=== PATIENT | male | born 1960 | race Caucasian/White ===

== ENCOUNTER 2023-09-04 14:22 | Emergency (ER) | payer MEDICARE, SELFPAY ==
[2023-09-04 14:26] VITALS: BP 131/85; PULSE 137; RESP 18; TEMP 36.8; O2SAT 95; BMI 21.5
--- NOTE | 2023-09-04 14:47 | CTR_ITS ---
PROCEDURE INFORMATION: Exam: CT Abdomen And Pelvis With Contrast Exam date and time: 09/04/2023 4:15 PM Age: 62 years old Clinical indication: Abdominal pain; Generalized; Additional info: Abdominal pain, cachexia TECHNIQUE: Imaging protocol: Computed tomography of the abdomen and pelvis with contrast. Radiation optimization: All CT scans at this facility use at least one of these dose optimization techniques: automated exposure control; mA and/or kV adjustment per patient size (includes targeted exams where dose is matched to clinical indication); or iterative reconstruction. Contrast material: OMNI 350; Contrast volume: 100 ml; Contrast route: INTRAVENOUS (IV); REPORTING DATA: Count of CT and Cardiac NM exams in prior 12 months: This patient has received 0 known CTs and 0 known cardiac nuclear medicine studies in the 12 months prior to the current study. COMPARISON: No relevant prior studies available. RADIATION DOSE METRICS: Total DLP (mGy-cm): 530 FINDINGS: Lungs: Infiltrate presumably atelectasis in the right base and left base laterally. Pleural spaces: Bilateral small pleural effusions. Liver: Enlarged liver with diffuse metastatic disease. The largest lesion is over 10 x 10 cm. Gallbladder and bile ducts: Normal. No calcified stones. No ductal dilation. Pancreas: Normal. No ductal dilation. Spleen: Normal. No splenomegaly. Adrenal glands: Normal. No mass. Kidneys and ureters: Normal. No hydronephrosis. Stomach and bowel: Thick-walled sigmoid colon extending to the proximal rectum possibly a neoplastic process. Fluid collection in the pelvis just anterior to the sigmoid colon and superior to the urinary bladder having air consistent with an abscess measuring 80 x 67 mm having an inverted U type shape. Appendix: The appendix is seen in unremarkable in the right lower quadrant. Intraperitoneal space: Intra-abdominal free air. Moderate to large ascites. Vasculature: Unremarkable. No abdominal aortic aneurysm. Lymph nodes: Unremarkable. No enlarged lymph nodes. Urinary bladder: See Stomach and bowel finding. Reproductive: Unremarkable as visualized. Bones/joints: Arthritis and spinal listhesis. Soft tissues: Left inguinal hernia containing nonobstructed date distal descending/sigmoid colon. CT/CT abdomen pelvis w con* [id number] IMPRESSION: 1. Diffuse hepatic metastatic disease. 2. Suspect a sigmoid colon/rectal mass. 3. Pelvic fluid collection with air likely an abscess. 4. Free intraperitoneal air. 5. Left inguinal hernia containing nonobstructed colon.
[2023-09-04 15:05] LABS: Hematocrit 30.6 % (37-53); Mean Corpuscular HGB Conc 31.7 g/dL (30-55); Mean Corpuscular Hemoglobin 27.1 pg (27-33); Mean Corpuscular Volume 85.5 fl (82-101); Mean Platelet Volume 8.3 fL (7.4-10.4); Platelet Count 612 10^3/cmm (157-399); Red Blood Count 3.58 10^6/uL (3.85-5.65); White Blood Count 8.71 10^3/uL (3.29-11.43)
[2023-09-04 15:17] VITALS: RESP 18; O2SAT 96
[2023-09-04] MEDS: ondansetron 2 mg/ML SDV 2 mL 4 MG IVP (15:17)
[2023-09-04] MEDS: HYDROmorphone 1 mg/mL INJ 1 mL 0.5 MG IVP (15:17)
[2023-09-04] MEDS: sodium chloride 0.9% 1,000 ML 999 ML IV ×2 (15:17→16:56)
[2023-09-04 15:24] LABS: Alanine Aminotransferase 55 U/L (0-41); Albumin Level 3.2 g/dL (3.5-5.2); Alkaline Phosphatase 246 U/L (40-130); Anion Gap 21.4 (5-19); Aspartate Amino Transferase 78 U/L (0-40); Blood Urea Nitrogen 12 mg/dL (8-23); Calcium 8.9 mg/dL (8.5-10.5); Carbon Dioxide 22 mmol/L (22-29); Chloride 96 mmol/L (98-107); Globulin 2.9 g/dL (1.3-4.6); Glucose 133 mg/dL (65-115); Lipase 6 U/L (13-60); Osmolality Calculated 282 mOsm/kg (285-295); Potassium 4.4 mmol/L (3.5-5.1); Sodium 135 mmol/L (136-145); Total Bilirubin 0.9 mg/dL (0.15-1.2); Total Protein 6.1 g/dL (6.6-8.7)
--- NOTE | 2023-09-04 15:29 | W.ED.WEAKNES ---
HPI - Weakness General: Chief complaint: Weakness Stated complaint: not eating, n/v, not sleeping Time Seen by Provider: 09/04/23 14:25 History of Present Illness: This patient is a 62-year-old white male who presents to the emergency department stating that he has had nausea, vomiting and diarrhea associated with weight loss, abdominal pain and decreased appetite for about 1 year now. He has been getting progressively weaker. He is here with his . He has had some blood in his stool. His past medical history includes ataxia. No surgical history. Review of Systems General: Reports: 10 or more systems reviewed and unremarkable except in HPI and below Physical Exam Const: COMMON NORMALS: patient oriented x3 and no limitations GENERAL APPEARANCE: cooperative and comfortable NUTRITIONAL APPEARANCE: cachectic HENMT: COMMON NORMALS: normocephalic, atraumatic, Normal nasal mucous membranes and turbinates present, moist oral mucous membranes and oropharynx normal HEAD & SCALP: normal to inspection, normocephalic and atraumatic FACE & SINUS: normal facial exam NOSE: Normal nasal mucous membranes and turbinates present Eye: COMMON NORMALS: Equal, round and reactive pupils present, EOMs intact bilaterally and conjunctivae normal GENERAL EYE: appearance normal, both eyes and all related structures CONJUNCTIVA: Yes conjunctivae normal PUPIL: Yes Equal, round and reactive pupils present Neck/C-Spine: COMMON NORMALS: supple and no JVD Chest: COMMONS NORMALS: normal inspection of the chest Resp: COMMON NORMALS: normal respiratory effort and clear to auscultation bilaterally AUSCULTATION: clear to auscultation bilaterally Cardio: COMMON NORMALS: no JVD, regular rate, regular rhythm, No gallops present (Cardio), No murmurs present (Cardio) and No rub (Cardio) RATE: regular rate RHYTHM: regular rhythm GI: INSPECTION: Yes abdominal distension and Yes Fluid wave present AUSCULTATION: Yes Hypoactive bowel sounds present PALPATION: Yes Tenderness to palpation present (GI), Yes Ascites present and Yes Rebound tenderness present PERCUSSION: Fluid wave present : COMMON NORMALS: Yes no CVA tenderness BLADDER/KIDNEY EXAM: Yes no CVA tenderness Back/Pelvis: COMMON NORMALS: no CVA tenderness and thoracic and lumbar spine normal to inspection Extremity: COMMON NORMALS: normal to inspection Neuro: COMMON NORMALS: patient oriented x3 and CN's II-XII intact bilaterally Psych: COMMON NORMALS: mental status grossly normal, Normal thought process present and cooperative THOUGHT PROCESS: Normal thought process present Skin: COMMON NORMALS: no rashes or lesions noted, turgor normal and no jaundice GENERAL SKIN EXAM: no rashes or lesions noted and turgor normal Course Vital Signs: Vital signs: Vital Signs Temperature 98.3 F 09/04/23 14:26 Pulse Rate 113 H 09/04/23 16:30 Respiratory Rate 20 H 09/04/23 16:57 Blood Pressure 130/82 09/04/23 16:30 Pulse Oximetry 98 09/04/23 16:57 Oxygen Delivery Me thod Room Air 09/04/23 16:30 MDM - Weakness Medical Decision Making CBC reveals a hemoglobin of 9.7 and platelet count of 612. CMP revealed an AST of 78, ALT 55 and alk phos of 246. CT scan of the abdomen and pelvis was read by the radiologist. There is free air, ascites, tumor in the sigmoid colon, pelvic abscess and numerous liver masses consistent with metastasis. Patient was given IV fluids and Dilaudid for his pain. I discussed all the results with him. His situation is grave. He is likely not a surgery candidate and he does not want any cancer treatment. Patient request that he just have his pain treated and he would like to go home. I did give him plenty of time to discuss this with his and they are in agreement. We did contact hospice and they are able to see him tomorrow at his home. I did place an order for hospice care. I did prescribe MS Contin for his pain. Patient was discharged. Lab Data 09/04/23 14:50 09/04/23 14:50 Radiology Impressions Abdomen/Pelvis CT 09/04/23 14:47 IMPRESSION: 1. Diffuse hepatic metastatic disease. 2. Suspect a sigmoid colon/rectal mass. 3. Pelvic fluid collection with air likely an abscess. 4. Free intraperitoneal air. 5. Left inguinal hernia containing nonobstructed colon. ADDENDUM: 09/04/23 [id number] THIS REPORT CONTAINS FINDINGS THAT MAY BE CRITICAL TO PATIENT CARE. The findings were verbally communicated by me to ALINA CINTRON at 4:49 PM [employer] on 09/04/2023. The findings were acknowledged and understood. Laboratory Results WBC 8.71 10^3/uL (3.29-11.43) 09/04/23 14:50 RBC 3.58 10^6/uL (3.85-5.65) L 09/04/23 14:50 Hgb 9.70 g/dL (11.27-16.99) L 09/04/23 14:50 Hct 30.6 % (37-53) L 09/04/23 14:50 MCV 85.5 fl (82-101) 09/04/23 14:50 MCH 27.1 pg (27-33) 09/04/23 14:50 MCHC 31.7 g/dL (30-55) 09/04/23 14:50 RDW 15.0 % (12.1-15.1) 09/04/23 14:50 Plt Count 612 10^3/cmm (157-399) H 09/04/23 14:50 MPV 8.3 fL (7.4-10.4) 09/04/23 14:50 Lymph % (Auto) Not Reportable 09/04/23 14:50 [place] % (Auto) Not Reportable 09/04/23 14:50 Lymph # (Auto) Not Reportable 09/04/23 14:50 [place] # (Auto) Not Reportable 09/04/23 14:50 Total Counted 100 (0-100) 09/04/23 14:50 Atypical Lymphs % 4.0 % (0-5) 09/04/23 14:50 Absolute Neutrophils 5.3 10^3/cmm (1.4-6.5) 09/04/23 14:50 Segmented Neutrophils 40 % 09/04/23 14:50 Abs Segm Neuts (Man) 3.5 10/cmm (1.6-7.1) 09/04/23 14:50 Band Neutrophils 21.0 % 09/04/23 14:50 Abs Band Neuts (Man) 1.8 10^3/cmm (0.0-1.2) H 09/04/23 14:50 Absolute Lymphocytes 0.8 10^3/cmm (1.2-3.4) L 09/04/23 14:50 Lymphocytes (Manual) 5 % 09/04/23 14:50 Monocytes (Manual) 3.0 % 09/04/23 14:50 Absolute Monocytes 0.3 10^3/cmm (0.1-0.6) 09/04/23 14:50 Eosinophils (Manual) 0 % 09/04/23 14:50 Absolute Eosinophils 0.0 10^3/cmm (0.0-0.7) 09/04/23 14:50 Basophils (Manual) 0.0 % 09/04/23 14:50 Absolute Basophils 0.0 10^3/cmm (0.0-0.2) 09/04/23 14:50 Metamyelocytes 24.0 % 09/04/23 14:50 Myelocytes 3.0 % 09/04/23 14:50 Platelet Estimate Increased (Normal) 09/04/23 14:50 Poikilocytosis 1+ H 09/04/23 14:50 Anisocytosis 1+ H 09/04/23 14:50 Sodium 135 mmol/L (136-145) L 09/04/23 14:50 Potassium 4.4 mmol/L (3.5-5.1) 09/04/23 14:50 Chloride 96 mmol/L (98-107) L 09/04/23 14:50 Carbon Dioxide 22 mmol/L (22-29) 09/04/23 14:50 Anion Gap 21.4 (5-19) H 09/04/23 14:50 BUN 12 mg/dL (8-23) 09/04/23 14:50 Creatinine 0.7 mg/dL (0.7-1.2) 09/04/23 14:50 GFR Calculation 115.0 mL/min (90-130) 09/04/23 14:50 Glucose 133 mg/dL (65-115) H 09/04/23 14:50 Calculated Osmolality 282 mOsm/kg (285-295) L 09/04/23 14:50 Calcium 8.9 mg/dL (8.5-10.5) 09/04/23 14:50 Total Bilirubin 0.9 mg/dL (0.15-1.2) 09/04/23 14:50 AST 78 U/L (0-40) H 09/04/23 14:50 ALT 55 U/L (0-41) H 09/04/23 14:50 Alkaline Phosphatase 246 U/L (40-130) H 09/04/23 14:50 Total Protein 6.1 g/dL (6.6-8.7) L 09/04/23 14:50 Albumin 3.2 g/dL (3.5-5.2) L 09/04/23 14:50 Globulin 2.9 g/dL (1.3-4.6) 09/04/23 14:50 Lipase 6 U/L (13-60) L 09/04/23 14:50 All radiology interpretation(s) finalized by discharge Discharge Plan Discharge Patient Disposition: Home Clinical Impression: Colon cancer metastasized to liver, Free intraperitoneal air, Abscess of male pelvis, Ascites Condition: Stable Prescriptions: New MS Contin 30 mg tablet extended release 30 mg PO Q8H Qty: 20 0RF ondansetron HCl 4 mg tablet 4 mg PO Q6H PRN (Reason: nausea and vomiting) Qty: 30 0RF No Action lorazepam 1 mg Tablet 1 mg PO BID PRN (Reason: Anxiety) Discharge Orders: Discharge ED (Routine); Ordered 09/04/23 Ordered By: James Cintron Patient Instructions: Opioid Safety, Pain Management Coding Level of Care Code ED [employer] for [facility]senio De La [facility]
[2023-09-04 15:35] VITALS: BP 112/84; PULSE 104; O2SAT 96
[2023-09-04 15:40] LABS: Slide Review Slide Review Perform
[2023-09-04 15:41] LABS: Total Cells Counted 100 (0-100)
[2023-09-04 15:51] LABS: Absolute Neutrophil 5.3 10^3/cmm (1.4-6.5); Absolute Segmented Neutrophil 3.5 10/cmm (1.6-7.1); Anisocytosis 1+; Band Neutrophils Absolute 1.8 10^3/cmm (0.0-1.2); Eosinophils 0 %; Lymphocytes 5 %; Lymphocytes Absolute 0.8 10^3/cmm (1.2-3.4); Monocytes Absolute 0.3 10^3/cmm (0.1-0.6); Platelet Estimate Increased (Normal); Poikilocytosis 1+; Segmented Neutrophils 40 %
[2023-09-04] MEDS: iohexol 350 mg/mL 500 mL Btl (per mL) IV (16:18)
[2023-09-04 16:30] VITALS: BP 130/82; PULSE 113; O2SAT 99
[2023-09-04 16:57] VITALS: RESP 20; O2SAT 98
[2023-09-04] MEDS: HYDROmorphone 1 mg/mL INJ 1 mL IVP (16:57)
== END 2023-09-04 18:17 | disposition home or self-care (01) ==
PROVIDERS: Emergency Provider Emergency Medicine
DX: R18.8 Other ascites (principal); K65.1 Peritoneal abscess; C18.9 Malignant neoplasm of colon, unspecified; C78.7 Secondary malignant neoplasm of liver and intrahepatic bile duct; K40.90 Unilateral inguinal hernia, without obstruction or gangrene, not specified as recurrent
CPT/HCPCS: 74177; 80053; 83690; 85007; 85025; 96361; 96374; 96375; 96376; 99285; J1170; J2405; J7030; Q9967